=== PATIENT | male | born 1960 | race Caucasian/White ===

== ENCOUNTER → 2024-10-11 | Outpatient (REF) | payer BC, OTHER ==
[~2024-10-11] MED LIST: /AUGM875TA OR; No Historical Meds; PERC5TAB8 OR
[2024-10-11 13:34] LABS: BASO # 0.0 10^3/uL (0.0-0.2); BASO % 0.8 % (0.0-1.0); EOS # 0.2 10^3/uL (0.0-0.5); EOS % 3.2 % (0.0-3.0); LYMPH # 1.3 10^3/uL (1.5-5.0); LYMPH % 25.1 % (24.0-44.0); MONO # 0.6 10^3/uL (0.0-0.8); MONO % 11.4 % (2.0-8.0); NEUTROPHILS # 3.1 10^3/uL (1.5-8.5); NEUTROPHILS % 59.3 % (36.0-66.0); PLATELET COUNT, AUTOMATED 253 10^3/uL (150-450)
[2024-10-11 13:52] LABS: ESTIMATED AVERAGE GLUCOSE 100.0 MG/DL (60-110)
[2024-10-11 14:05] LABS: ALT/SGPT 25 U/L (7.0-40); AST/SGOT 26 U/L (<34); CALCIUM LEVEL 9.9 MG/DL (8.3-10.6); CARBON DIOXIDE LEVEL 31 MMOL/L (20-31); CHLORIDE LEVEL 103 MMOL/L (98-107); CHOLESTEROL LEVEL 202 MG/DL (<200); CHOLESTEROL RISK RATIO 2.49 (<5); CREATININE FOR GFR 1.08 MG/DL (0.70-1.30); GLOMERULAR FILTRATION RATE 77.6 (>49); LDL CHOLESTEROL 97.8 MG/DL (<100); MAGNESIUM LEVEL 2.3 MG/DL (1.8-2.4); NON-HDL-C 121.0 MG/DL; POTASSIUM SERUM 5.4 MMOL/L (3.5-5.1); PSA SCREENING 8.04 NG/ML (< 4.00); SODIUM LEVEL 141 MMOL/L (136-145); TRIGLYCERIDES LEVEL 116 MG/DL (<150)
[2024-10-11 14:10] LABS: VITAMIN B12 LEVEL 270 PG/ML (211-911)
[2024-10-11 14:44] LABS: HIV 1&2 SCREEN NEGATIVE (NEGATIVE)
[2024-10-11 14:52] LABS: HEPATITIS C VIRUS ABY INDEX 0.08 INDEX (<0.8)
[2024-10-11 16:54] LABS: CREATININE, URINE 125.7 MG/DL
[2024-10-11 16:55] LABS: MALB URINE SIEMENS 4.0 MG/L; MAU/CREAT RATIO 3.1 MCG/MG (0.0-30.0)
== END ==
LOC: M LAB REF 12:26
PROVIDERS: ATTEND Nurse Practitioner Family
DX: I10 Essential (primary) hypertension (principal); F10.90 Alcohol use, unspecified, uncomplicated; Z12.5 Encounter for screening for malignant neoplasm of prostate; Z11.9 Encounter for screening for infectious and parasitic diseases, unspecified; R53.83 Other fatigue; E66.3 Overweight
CPT/HCPCS: 80053; 80061; 82043; 82607; 82746; 83036; 83735; 84443; 85025; 86780; 86803; 87389; G0103

== ENCOUNTER → 2024-10-21 | Outpatient (CLI) | payer BC | LOC: M EKG 08:16 | PROVIDERS: ATTEND Nurse Practitioner Family | DX: I44.4 Left anterior fascicular block (principal); I10 Essential (primary) hypertension; R00.1 Bradycardia, unspecified ==

== ENCOUNTER → 2024-10-26 | Outpatient (REF) | payer BC ==
[2024-10-26 12:35] LABS: MAGNESIUM LEVEL 2.3 MG/DL (1.8-2.4)
[2024-10-26 12:36] LABS: IRON (FE) 75.0 UG/DL (65-175)
[2024-10-26 12:37] LABS: PERCENT SATURATION 21.4 % (19.7-50.0)
[2024-10-26 12:39] LABS: VITAMIN B12 LEVEL 305.0 PG/ML (211-911)
== END ==
LOC: M LAB REF 12:03
PROVIDERS: ATTEND Nurse Practitioner Family
DX: R20.2 Paresthesia of skin (principal)

== ENCOUNTER → 2024-11-05 | Outpatient (CLI) | payer BC | LOC: M RAD 09:08 | PROVIDERS: ATTEND Nurse Practitioner Family | DX: R22.2 Localized swelling, mass and lump, trunk (principal) ==

== ENCOUNTER → 2024-12-07 | Outpatient (CLI) | payer BC | LOC: M PLAIMG 09:28 | PROVIDERS: ATTEND Physician Assistant | DX: R97.20 Elevated prostate specific antigen [PSA] (principal) ==

== ENCOUNTER → 2024-12-28 | Outpatient (CLI) | payer BC ==
[2024-12-28 09:56] LABS: ALT/SGPT 21.0 U/L (7.0-40); AST/SGOT 20.0 U/L (<34); CALCIUM LEVEL 9.6 MG/DL (8.3-10.6); CARBON DIOXIDE LEVEL 31.0 MMOL/L (20-31); CHLORIDE LEVEL 102.0 MMOL/L (98-107); CHOLESTEROL LEVEL 214.0 MG/DL (<200); CHOLESTEROL RISK RATIO 2.46 (<5); CREATININE FOR GFR 1.17 MG/DL (0.70-1.30); GLOMERULAR FILTRATION RATE 70.5 (>49); LDL CHOLESTEROL 109.0 MG/DL (<100); NON-HDL-C 127.2 MG/DL; POTASSIUM SERUM 5.2 MMOL/L (3.5-5.1); SODIUM LEVEL 141.0 MMOL/L (136-145); TRIGLYCERIDES LEVEL 91.0 MG/DL (<150)
== END ==
LOC: M LAB 07:38
PROVIDERS: ATTEND Registered Nurse
DX: I10 Essential (primary) hypertension (principal); E78.2 Mixed hyperlipidemia

== ENCOUNTER → 2025-03-08 | Outpatient (CLI) | payer OTHER ==
[~2025-03-08] MED LIST changes: +AMLO25TA PO; +ATOR1TAB21 PO; +FAMO20TA PO; +LOSA25TA13 PO
[2025-03-08 11:18] LABS: CALCIUM LEVEL 9.6 MG/DL (8.3-10.6); CARBON DIOXIDE LEVEL 28.0 MMOL/L (20-31); CHLORIDE LEVEL 104.0 MMOL/L (98-107); CREATININE FOR GFR 1.16 MG/DL (0.70-1.30); GLOMERULAR FILTRATION RATE 70.8 (>49); POTASSIUM SERUM 4.7 MMOL/L (3.5-5.1); SODIUM LEVEL 141.0 MMOL/L (136-145)
== END ==
LOC: M LAB 09:59
PROVIDERS: ATTEND Internal Medicine Cardiovascular Disease
DX: I10 Essential (primary) hypertension (principal)